=== PATIENT | male | born 1975 | race Two or more races ===

== ENCOUNTER 2023-06-19 14:02 | Outpatient (AMB) | payer SELFPAY ==
--- NOTE | 2023-06-19 14:08 | MHC.OFFVIS ---
Intake Vital Signs 06/19/23 14:10 06/19/23 14:38 Height 5 ft 10 in Weight 241 lb BMI 34.6 BP 158/73 H 141/82 H Blood Pressure Location Lt brachial Lt brachial Position Sitting Sitting Pulse 87 Intake Visit Reasons: Colonoscopy Screening Intake Note: Patient 1st pre colonoscopy screening. Patient cc: constipation with blood on and off. Denies any other GI issues. 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 He has no GI complaints referred index screening colonoscopy Bowels are good- Appetite is good He has no respiratory issues. As he is being treated for hypertension says blood pressure fluctuates. He has no nausea, vomiting, hematemesis, hematochezia fever chills. No , dizziness, chest pain or shortness of breath PFS Social History (Updated 06/19/23 @ 14:09 by Katrin Acosta) Household Members: Spouse Alcohol intake: never Patient Tobacco Use Status: Never used Tobacco Use of substances other than those prescribed or required for medical reasons: No Review of Systems Const All systems reviewed & are unremarkable except as noted in HPI and below Card Denies chest pain and Denies dyspnea Resp Denies dyspnea GI Denies abdominal pain, Denies hematochezia, Denies constipation, Denies heartburn, Denies nausea and Denies vomiting Physical Exam Vital Signs: Last Vital Signs Pulse 87 06/19/23 14:10 BP 141/82 H 06/19/23 14:38 BMI result Body Mass Index 34.6 Const General: cooperative, healthy appearing, comfortable and no acute distress Orientation/consciousness: patient oriented x3 Limitations: language barrier Eyes Sclerae: sclerae normal Resp Effort & Inspection: normal respiratory effort and able to speak in complete sentences Auscultation: clear to auscultation bilaterally and no rhonchi Cardio Rate: regular rate Rhythm: regular rhythm and abnormal rhythm (unable to further appreciate) irregularly irregular Heart sounds: S1 normal heart sound present and S2 normal heart sound present GI Palpation (GI): Soft to palpation and nontender Auscultation: normal bowel sounds Skin General skin exam: no rashes or lesions noted Neuro General: patient oriented x3 Extrem General: Yes full ROM Psych Mental Status: mental status grossly normal Speech and movement: Normal speech and movement present Affect: normal affect Attitude: cooperative Thought content: Normal thought content present Assessment & Plan Assessment & Plan (1) Family history of GI tract cancer: Comment: Father in his 70s Code(s): Z80.0 - Family history of malignant neoplasm of digestive organs (2) Encounter for screening colonoscopy: Comment: Index screening colonoscopy Discussed procedure, rare risks, need for escorted due to anesthesia Code(s): Z12.11 - Encounter for screening for malignant neoplasm of colon Plan Index screening colonoscopy- Fam hx CRC- pls schedule out end of August after Cardiology consult MG prep Orders: Orders Colonoscopy - GI Use Only Today Z12.11 - Encounter for screening for malignant neoplasm of colon, Z80.0 - Family history of malignant neoplasm of digestive organs Medications: New bisacodyl (Dulcolax (bisacodyl)) Take 2 tablets by mouth at 12:00pm the day before your procedure. 10 mg (2 x 5 mg) PO ONCE 1 day 2 tabs 0RF colonoscopy prep Z12.11 - Encounter for screening for malignant neoplasm of colon polyethylene glycol 3350 (Miralax) Take as directed by mouth the day before your procedure. 238 grams PO ONCE 1 day 238 grams 0RF Patient Instructions: Very pleasant 48-year-old male family history colon cancer referred for index screening colonoscopy. Index screening colonoscopy MiraLax prep, [place] will be going [place] country [place] on his return He does have cardiac consult in August will schedule procedure after that-he and his both agree if there is any change in health status they will inform us. And courage to call questions or concern Appreciate the opportunity assist in the care the patient Coding Level of Care Code Est Pt Level 3 (73525) Diagnoses Family history of GI tract cancer Z80.0 Encounter for screening colonoscopy Z12.11 Time Spent (min) 30 Comment assisted with doctor's assistant
[2023-06-19 14:10] VITALS: BP 158/73; PULSE 87; BMI 34.6
[2023-06-19 14:38] VITALS: BP 141/82
== END 2023-06-19 15:02 | disposition home or self-care (01) ==
PROVIDERS: Visit Provider Physician Assistant
DX: Z80.0 Family history of malignant neoplasm of digestive organs (principal); Z12.11 Encounter for screening for malignant neoplasm of colon
CPT/HCPCS: 99213

== ENCOUNTER → 2023-06-19 14:02 | Outpatient (BNVA) | payer OTHER, SELFPAY | PROVIDERS: Visit Provider Physician Assistant | DX: I10 Essential (primary) hypertension (principal); Z80.0 Family history of malignant neoplasm of digestive organs | CPT/HCPCS: 99212 ==

== ENCOUNTER 2023-08-28 14:59 | Outpatient (AMB) | payer SELFPAY ==
--- NOTE | 2023-08-28 15:03 | A.OFFVIS_ITS ---
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 He is on 3 medications. He has no CP or SOB. No symptoms or signs of CHF. Not taking excessivr salt. Not on NSAIDS. Family history unknown. [facility] Social History (Updated 06/19/23 @ 14:09 by Katrin Acosta) Household Members: Spouse Alcohol intake: never Patient Tobacco Use Status: Never used Tobacco Physical Exam Vital Signs: Last Vital Signs Pulse 74 08/28/23 15:04 BP 140/86 H 08/28/23 15:04 BMI result Body Mass Index 33.8 GENERAL APPEARANCE: in no acute distress, pleasant. NECK: no carotid bruit, no jugular venous distention. SKIN: no suspicious lesions, warm and dry. HEART: no murmurs, regular rate and rhythm. LUNGS: clear to auscultation bilaterally. ABDOMEN: soft, nontender. EXTREMITIES: no edema. PERIPHERAL PULSES: equal. NEUROLOGIC: No gross deficits, AAO X 3 Office Procedures EKG Details: Sinus rhythm 74 beats per axis inferior lateral T-wave changes consider ischemia versus incomplete right bundle-branch block, QTC 441 milliseconds. [id number], Complete Assessment & Plan Assessment & Plan (1) Essential hypertension: Code(s): I10 - Essential (primary) hypertension (2) Renal cyst: Code(s): N28.1 - Cyst of kidney, acquired Plan 48 male with HTN. BP elevated. Adding amlodipine. Will check echo. He had renal US where renal cyst was noted in [place]. We will get renal US to check renal cyst. Rarely renal cancer is the cause for uncontrolled hypertension but I doubt this is the situation. Orders: Orders CA echo transthoracic complete Today I10 - Essential (primary) hypertension US renal BI Today N28.1 - Cyst of kidney, acquired Medications: New amlodipine 5 mg PO DAILY 60 tabs 3RF Coding Level of Care Code New Pt Level 4 (31192) Diagnoses Essential hypertension I10 Renal cyst N28.1 CPT Codes EKG - CPT: 11435-[id number], Complete ([id number])
[2023-08-28 15:04] VITALS: BP 140/86; PULSE 74; BMI 33.8
== END 2023-08-28 15:43 | disposition home or self-care (01) ==
PROVIDERS: Visit Provider Internal Medicine Cardiovascular Disease
DX: I10 Essential (primary) hypertension (principal); N28.1 Cyst of kidney, acquired
CPT/HCPCS: 93010; 99204

== ENCOUNTER → 2023-08-28 14:59 | Outpatient (BNVA) | payer OTHER, SELFPAY | PROVIDERS: Visit Provider Internal Medicine Cardiovascular Disease | DX: I10 Essential (primary) hypertension (principal); N28.1 Cyst of kidney, acquired | CPT/HCPCS: 93005 ==